=== PATIENT | male | born 1960 | race Caucasian/White ===

== ENCOUNTER 2016-07-01 07:23 | Day surgery (SDC) | payer OTHER ==
--- NOTE | ~2016-07-01 | EGD ---
EGD REPORT [facility] [address] [place] [address] NAME: JEFFERY EVANS : 56 STATUS : REG [facility]#: [id number] AGE: 56 ADM/REG DATE : 07/01/16 MR#: [id number] REPORT SERV DATE: 07/01/16 DICTATED BY: NICOLE HAINES DATE: 07/01/16 REPORT STATUS : Draft TRANSCRIBED BY: [facility] DATE: 07/01/16 Endoscopy Center Patient Name: Jeffery Evans Date of : 1960 Attending MD: NICOLE HAINES MD Procedure Date No Time: 07/01/2016 Procedure: Upper GI endoscopy Indications: Epigastric abdominal pain; no acid suppression. Patient Profile: Informed consent was obtained from the patient by me prior to the procedure. Risks, benefits, and alternatives were discussed including the risk of bleeding, perforation, infection, reaction to medicine, missed lesion, and cardiopulmonary complications. Referring MD: FRDIA DENG MD, JAYJAY ANNE Medicines: Monitored Anesthesia Care Complications: No immediate complications. Procedure: Pre-Anesthesia Assessment: - ASA Grade Assessment: II - A patient with mild systemic disease. After obtaining informed consent, the endoscope was passed under direct vision. Throughout the procedure, the patient's blood pressure, pulse, and oxygen saturations were monitored continuously. The GIF H190 [id number] was introduced through the mouth, and advanced to the third part of duodenum. The endoscope was withdrawn with careful examination all mucosal surfaces including retroflexion stomach. The upper GI endoscopy was accomplished without difficulty. The patient tolerated the procedure well. Findings: The 3rd part of the duodenum was normal. The first part of the duodenum and 2nd part of the duodenum were normal. Biopsies were taken with a cold forceps for histology. The esophagus and gastroesophageal junction were examined with white light. There was no visual evidence of Goodman's esophagus. The examined esophagus was normal. Diffuse mildly erythematous mucosa was found in the gastric body. Biopsies were taken with a cold forceps for histology. Diffuse mildly erythematous mucosa was found in the cardia and in the gastric fundus. The gastric antrum was normal. Impression: - Normal 3rd part of the duodenum. - Normal first part of the duodenum and 2nd part of the EGD REPORT [address] [address] NAME: JEFFERY EVANS : [birth year] STATUS : REG [facility]#: [id number] AGE: 56 ADM/REG DATE : 07/01/16 MR#: [id number] REPORT SERV DATE: 07/01/16 DICTATED BY: NICOLE HAINES DATE: 07/01/16 REPORT STATUS : Draft [facility]ANS[facility] BY: [facility] DATE: 07/01/16 duodenum. Biopsied. - There is no endoscopic evidence of Goodman's esophagus. - Normal esophagus. - Erythematous mucosa in the gastric body. Biopsied. - Erythematous mucosa in the cardia and gastric fundus. - Normal antrum. Recommendation: - Patient has a contact number available for emergencies. The signs and symptoms of potential delayed complications were discussed with the patient. Return to normal activities tomorrow. Written discharge instructions were provided to the patient. - Regular diet. - Await pathology results. - Continue present medications. Procedure Code(s): --- Professional --- 90972, Esophagogastroduodenoscopy, flexible, transoral; with biopsy, single or multiple Diagnosis Code(s): --- Professional --- R10.13, Epigastric pain CPT copyright 2013 [employer]. All rights reserved. The codes documented in this report are preliminary and upon mineral surveying technician review may be revised to meet current compliance requirements. NICOLE HAINES MD 07/01/2016 8:32 AM This report has been signed electronically. Number of Addenda: 0 Note Initiated On: 07/01/2016 8:06 AM Scope Withdrawal Time 0 hours 0 minutes 0 seconds [address] [place] [address]
--- NOTE | ~2016-07-01 | EGD ---
EGD REPORT [facility] [address] [place] [address] NAME: JEFFERY EVANS : 56 STATUS : REG [facility]#: [id number] AGE: 56 ADM/REG DATE : 07/01/16 MR#: [id number] REPORT SERV DATE: 07/01/16 DICTATED BY: NICOLE HAINES DATE: 07/01/16 REPORT STATUS : Draft TRANSCRIBED BY: [facility] DATE: 07/01/16 Endoscopy Center Patient Name: Jeffery Evans Date of : 1960 Attending MD: NICOLE HAINES MD Procedure Date No Time: 07/01/2016 Procedure: Upper GI endoscopy Indications: Epigastric abdominal pain; no acid suppression. Patient Profile: Informed consent was obtained from the patient by me prior to the procedure. Risks, benefits, and alternatives were discussed including the risk of bleeding, perforation, infection, reaction to medicine, missed lesion, and cardiopulmonary complications. Referring MD: FRIDA DENG MD, JAYJAY ANNE Medicines: Monitored Anesthesia Care Complications: No immediate complications. Procedure: Pre-Anesthesia Assessment: - ASA Grade Assessment: II - A patient with mild systemic disease. After obtaining informed consent, the endoscope was passed under direct vision. Throughout the procedure, the patient's blood pressure, pulse, and oxygen saturations were monitored continuously. The GIF H190 [id number] was introduced through the mouth, and advanced to the third part of duodenum. The endoscope was withdrawn with careful examination all mucosal surfaces including retroflexion stomach.The upper GI endoscopy was accomplished without difficulty. The patient tolerated the procedure well. Findings: The 3rd part of the duodenum was normal. The first part of the duodenum and 2nd part of the duodenum were normal. Biopsies were taken with a cold forceps for histology. The esophagus and gastroesophageal junction were examined with white light. There was no visual evidence of Goodman's esophagus. The examined esophagus was normal. Diffuse mildly erythematous mucosa was found in the gastric body. Biopsies were taken with a cold forceps for histology. Diffuse mildly erythematous mucosa was found in the cardia and in the gastric fundus. The gastric antrum was normal. Impression: - Normal 3rd part of the duodenum. - Normal first part of the duodenum and 2nd part of the EGD REPORT [address] [address] NAME: JEFFERY EVANS : [birth year] STATUS : REG [facility]#: [id number] AGE: 56 ADM/REG DATE : 07/01/16 MR#: [id number] REPORT SERV DATE: 07/01/16 DICTATED BY: NICOLE HAINES DATE: 07/01/16 REPORT STATUS : Draft TRANSCRIBED BY: [facility] DATE: 07/01/16 duodenum. Biopsied. - There is no endoscopic evidence of Goodman's esophagus. - Normal esophagus. - Erythematous mucosa in the gastric body. Biopsied. - Erythematous mucosa in the cardia and gastric fundus. - Normal antrum. Recommendation: - Patient has a contact number available for emergencies. The signs and symptoms of potential delayed complications were discussed with the patient. Return to normal activities tomorrow. Written discharge instructions were provided to the patient. - Regular diet. - Await pathology results. - Continue present medications. Procedure Code(s): --- Professional --- 38914, Esophagogastroduodenoscopy, flexible, transoral; with biopsy, single or multiple Diagnosis Code(s): --- Professional --- R10.13, Epigastric pain CPT copyright 2013 [employer]. All rights reserved. The codes documented in this report are preliminary and upon epic ambulatory analysts review may be revised to meet current compliance requirements. NICOLE HAINES MD 07/01/2016 8:32 AM This report has been signed electronically. Number of Addenda: 0 Note Initiated On: 07/01/2016 8:06 AM Scope Withdrawal Time 0 hours 0 minutes 0 seconds [address] [place] [address]
--- NOTE | ~2016-07-01 | EGD ---
EGD REPORT [facility] [address] [place] [place] [address] NAME: JEFFERY EVANS : 56 STATUS : REG [facility]#: [id number] AGE: 56 ADM/REG DATE : 07/01/16 MR#: [id number] REPORT SERV DATE: 07/01/16 DICTATED BY: NICOLE HAINES DATE: 07/01/16 REPORT STATUS : Draft TRANSCRIBED BY: [facility] DATE: 07/01/16 Endoscopy Center Patient Name: Jeffery Evans Date of : 1960 Attending MD: NICOLE HAINES MD Procedure Date No Time: 07/01/2016 Procedure: Colonoscopy Indications: High risk colon cancer surveillance: Personal history of colonic polyps; last exam 2010. Patient Profile: Informed consent was obtained from the patient by me prior to the procedure. Risks, benefits, and alternatives were discussed including the risk of bleeding, perforation, infection, reaction to medicine, missed lesion, and cardiopulmonary complications. Referring MD: FRIDA DENG MD, JAYJAY ANNE Medicines: Monitored Anesthesia Care Complications: No immediate complications. Procedure: Pre-Anesthesia Assessment: - ASA Grade Assessment: II - A patient with mild systemic disease. After I obtained informed consent, the scope was passed under direct vision. Throughout the procedure, the patient's blood pressure, pulse, and oxygen saturations were monitored continuously. The CF [id number] was introduced through the anus and advanced to the cecum, identified by appendiceal orifice and ileocecal valve. The colonoscope was slowly withdrawn with careful examination all mucosal surfaces including specific attention around flexures and tip deflection behind folds; retroflexion performed in rectum. The colonoscopy was performed without difficulty. The patient tolerated the procedure well. The quality of the bowel preparation was adequate. The ileocecal valve, appendiceal orifice, terminal ileum and rectum were photographed. Findings: The terminal ileum appeared normal. A sessile polyp was found in the rectum. The polyp was 5 mm in size. The polyp was removed with a cold biopsy forceps. Resection and retrieval were complete. A patchy area of mildly erythematous mucosa was found in the rectum. Biopsies were taken with a cold forceps for histology. A few medium-mouthed diverticula were found in the sigmoid colon, in the descending colon and in the transverse colon. Internal hemorrhoids were found, and they were mild. EGD REPORT [address] [address] NAME: JEFFERY EVANS : 56 STATUS : REG [facility]#: [id number] AGE: 56 ADM/REG DATE : 07/01/16 MR#: [id number] REPORT SERV DATE: 07/01/16 DICTATED BY: NICOLE HAINES DATE: 07/01/16 REPORT STATUS : Draft TRANSCRIBED BY: [employer] DATE: 07/01/16 Impression: - The examined portion of the ileum was normal. - One 5 mm polyp in the rectum. Resected and retrieved. - Erythematous mucosa in the rectum. Biopsied. - Diverticulosis in the sigmoid colon, in the descending colon and in the transverse colon. - Internal hemorrhoids. Recommendation: - Patient has a contact number available for emergencies. The signs and symptoms of potential delayed complications were discussed with the patient. Return to normal activities tomorrow. Written discharge instructions were provided to the patient. - Regular diet. - Continue present medications. - Await pathology results. - Repeat colonoscopy for surveillance based on pathology results. Procedure Code(s): --- Professional --- 66841, Colonoscopy, flexible, proximal to splenic flexure; with biopsy, single or multiple Diagnosis Code(s): --- Professional --- K64.8, Other hemorrhoids K57.30, Diverticulosis of large intestine without perforation or abscess without bleeding K62.1, Rectal polyp K62.89, Other specified diseases of anus and rectum Z86.010, Personal history of colonic polyps CPT copyright 2013 [employer]. All rights reserved. The codes documented in this report are preliminary and upon production assistant review may be revised to meet current compliance requirements. NICOLE HAINES MD 07/01/2016 8:52 AM This report has been signed electronically. Number of Addenda: 0 Note Initiated On: 07/01/2016 8:04 AM Scope Withdrawal Time 0 hours 9 minutes 27 seconds [address] [place] [address]
[~2016-07-01 07:23] MED LIST: ACTOS30 PO; AMARYL4 PO; ASAB PO; BYDUREON2 MG SQ; COZAAR100 MG; GLUCOPHAGE1000 MG PO; HYZAAR 50/12.51 TAB PO; INVOKANA100 MG PO; LIPITOR20 PO; PROTONIX PO; SINGULAIR1 PO; TRULICITY1.5 MG/0.5 SQ; Z100 PO; Z300 PO; ZYRTEC ALLGY10 MG PO
== END 2016-07-01 23:59 | disposition home or self-care (01) ==
LOC: DMU 07:23
PROVIDERS: Internal Medicine Gastroenterology
PROC: 0DB98ZX Excision of Duodenum, Via Natural or Artificial Opening Endoscopic, Diagnostic (ICD-10-PCS; principal; 2016-07-01 08:30)
PROC: 0DB68ZX Excision of Stomach, Via Natural or Artificial Opening Endoscopic, Diagnostic (ICD-10-PCS; 2016-07-01 08:30)
DX: Z12.11 Encounter for screening for malignant neoplasm of colon (principal); K63.5 Polyp of colon; K62.1 Rectal polyp; I10 Essential (primary) hypertension; E78.00 Pure hypercholesterolemia, unspecified; K57.30 Diverticulosis of large intestine without perforation or abscess without bleeding; K62.89 Other specified diseases of anus and rectum; K64.8 Other hemorrhoids; Z86.010 Personal history of colon polyps; Z88.9 Allergy status to unspecified drugs, medicaments and biological substances; Z88.5 Allergy status to narcotic agent; Z90.49 Acquired absence of other specified parts of digestive tract
CPT/HCPCS: 82962; 88305